=== PATIENT | female | born 1990 | race Caucasian/White ===

== ENCOUNTER → 2020-07-21 15:15 | Outpatient (BNVA) | payer MEDICAID, SELFPAY | PROVIDERS: Family Provider Nurse Practitioner Family; PCP Nurse Practitioner Family; Visit Provider Obstetrics & Gynecology | DX: Z12.4 Encounter for screening for malignant neoplasm of cervix (principal) | CPT/HCPCS: 88175 ==

== ENCOUNTER → 2020-08-21 12:09 | Outpatient (BNVA) | payer MEDICAID, SELFPAY | PROVIDERS: Family Provider Nurse Practitioner Family; PCP Nurse Practitioner Family; Visit Provider Obstetrics & Gynecology | DX: L73.2 Hidradenitis suppurativa (principal) | CPT/HCPCS: 80048 ==

== ENCOUNTER → 2020-11-13 10:25 | Outpatient (BNVA) | payer MEDICAID, SELFPAY | PROVIDERS: Family Provider Nurse Practitioner Family; PCP Nurse Practitioner Family; Visit Provider Obstetrics & Gynecology | DX: L73.2 Hidradenitis suppurativa (principal) | CPT/HCPCS: 80048 ==

== ENCOUNTER → 2021-02-23 16:15 | Outpatient (BNVA) | payer MEDICAID, SELFPAY | PROVIDERS: Family Provider Nurse Practitioner Family; PCP Nurse Practitioner Family; Visit Provider Surgery | DX: Z20.822 Contact with and (suspected) exposure to COVID-19 (principal) | CPT/HCPCS: 87635 ==

== ENCOUNTER 2021-02-28 09:00 | Day surgery (SDC) | payer OTHER, MEDICAID, SELFPAY ==
[2021-02-27 12:20] VITALS: BMI 49.6
[2021-02-28 09:16] VITALS: BP 168/92; PULSE 108; RESP 18; TEMP 36.5; O2SAT 100
[2021-02-28 09:26] LABS: OR HCG Qualitative Urine Negative (Negative)
[2021-02-28] MEDS: sodium chloride 0.9% 1,000 ML 30 ML IV (09:30)
--- NOTE | 2021-02-28 10:25 | ANES.PREANE2 ---
Pre-Anesthetic Assessment Pre-Anesthetic Assessment: Height/Weight: Height 1.6 m Weight 127.006 kg Temp Pulse Resp BP Pulse Ox 97.7 F 108 H 18 168/92 100 02/28/21 09:16 02/28/21 09:16 02/28/21 09:16 02/28/21 09:16 02/28/21 09:16 Preop Diagnosis: Acid reflux associated with morbid obesity Proposed Procedure: Operation Date: 02/28/21 10:30 Proposed Procedures p EGD 42653 K21.9(Not Applicable) - Jalen Olson MD Was Beta Chavez taken within 24 hours: N/A Was Clonidine taken within 24 hours: N/A Last intake: Intake Last Liquid Date 02/28/21 Last Liquid Time 06:00 Last Solid Date 02/27/21 Last Solid Time 20:00 Social: Social History: No alcohol and No tobacco Exam: Pre-Anes Outpt Exam: alert, oriented x 3, clear to auscultation bilaterally and regular rate & rhythm Airway: Submandibular: WNL Cervical ROM: WNL MP: 2 Additional comments: Missing/broken tooth upper arch Metabolic: Metabolic: Morbid obesity Comments: PCOS Anesthetic Plan: ASA status: 3 Anesthesia: MAC Risk of > 500 ml blood loss (7ml/kg in children): No PFSH Anesthesia PFSH: Medical History PCOS (polycystic ovarian syndrome) (~2005) Surgical History No significant past surgical history Family History Mother Hyperlipidemia Grandmother Hyperlipidemia Maternal Grandfather Heart disease Maternal Denies family history of Anesthesia complication Bleeding disorder Social History Smoking and tobacco status: never smoked Alcohol intake: current Alcohol intake frequency: holidays/special occasions only Current occupational status: employed Data Anesthesia Other Labs: Laboratory Results - last 48 hr 02/28/21 09:25 Urine HCG, Qual Negative Cardiac Studies: No Data to Display
--- NOTE | 2021-02-28 10:58 | W.PM.OPSUD ---
Surgery/Procedure H&P Update DATE OF PROCEDURE: February 28, 2021 DATE H&P PERFORMED: 02/08/21 H&P UPDATE INFORMATION: I have reviewed H&P completed within last 30 days, I have examined patient prior to procedure and No changes to prior documentation PREOP DIAGNOSIS: Acid reflux associated with morbid obesity PRIMARY INDICATION FOR PROCEDURE: The same PLANNED PROCEDURE: Operation Date: 02/28/21 10:30 Proposed Procedures p EGD 82974 K21.9(Not Applicable) - Jalen Olson MD
[2021-02-28 11:30] VITALS: BP 130/81; PULSE 90; RESP 18; TEMP 36.3; O2SAT 100
[2021-02-28 11:35] VITALS: BP 136/96; PULSE 90; RESP 20; O2SAT 96
[2021-02-28 11:40] VITALS: BP 168/60; PULSE 90; TEMP 36.3; O2SAT 96
[2021-02-28 11:48] VITALS: BP 123/95; PULSE 98; RESP 18; TEMP 36.3; O2SAT 100
--- NOTE | 2021-02-28 12:01 | ANE.PACU2 ---
Inpatient post-anesthesia follow up: Airway intact: Yes Vital signs: Temperature 97.3 F Pulse Rate 98 Respiratory Rate 18 Blood Pressure 123/95 Pulse Oximetry 100 Oxygen Delivery Me thod Room Air Oxygen Flow Rate Fraction of Inspir ed Oxygen Hydration adequate: Yes Nausea and vomiting: No Pain level: 1 Mental status: Baseline
[2021-02-28 12:06] VITALS: BP 137/87
== END 2021-02-28 12:10 | disposition home or self-care (01) ==
PROVIDERS: Anesthesiology; PCP Registered Nurse; Visit Provider Surgery
PROC: 0DJ08ZZ Inspection of Upper Intestinal Tract, Via Natural or Artificial Opening Endoscopic (ICD-10-PCS; CPT 43235; principal; 2021-02-28 10:30)
DX: K21.9 Gastro-esophageal reflux disease without esophagitis (principal); K29.70 Gastritis, unspecified, without bleeding; K29.80 Duodenitis without bleeding; E66.01 Morbid (severe) obesity due to excess calories; Z68.42 Body mass index [BMI] 45.0-49.9, adult; E28.2 Polycystic ovarian syndrome; M54.9 Dorsalgia, unspecified; F32.9 Major depressive disorder, single episode, unspecified; F41.9 Anxiety disorder, unspecified; Z79.84 Long term (current) use of oral hypoglycemic drugs; Z82.49 Family history of ischemic heart disease and other diseases of the circulatory system
CPT/HCPCS: 43239; 81025; 84703; 88305; 96360; 96361; J2704; J7030

== ENCOUNTER 2021-05-11 13:59 | Outpatient (CLI) | payer OTHER, MEDICAID, SELFPAY ==
--- NOTE | 2021-05-11 14:06 | XR_ITS ---
WS: [id number] FOOT RIGHT TECHNIQUE: 3 views of the right foot CLINICAL INFORMATION: M79.671 - Pain in right foot COMPARISON: None. FINDINGS: Normal anatomic alignment. No acute fractures. Soft tissue edema. Normal metatarsals. Plantar calcane al spurring. Achilles enthesophyte. XR/XR foot RT min 3V* [id number] IMPRESSION: 1. Soft tissue edema midfoot and forefoot. No acute fractures. 2. Prominent plantar calcaneal spur measuring 10 mm. Achilles enthesophyte.
== END 2021-05-11 14:00 | disposition home or self-care (01) ==
PROVIDERS: PCP Registered Nurse; Visit Provider Family Medicine
DX: M79.671 Pain in right foot (principal); R60.0 Localized edema; M77.31 Calcaneal spur, right foot
CPT/HCPCS: 73630

== ENCOUNTER → 2021-05-14 10:27 | Outpatient (BNVA) | payer OTHER, MEDICAID, SELFPAY | PROVIDERS: PCP Registered Nurse; Visit Provider Family Medicine | DX: E66.9 Obesity, unspecified (principal); R68.89 Other general symptoms and signs; Z83.79 Family history of other diseases of the digestive system | CPT/HCPCS: 82784; 83516 ==

== ENCOUNTER → 2021-05-16 16:10 | Outpatient (BNVA) | payer OTHER, MEDICAID, SELFPAY | PROVIDERS: PCP Registered Nurse; Visit Provider Internal Medicine Rheumatology | DX: L73.2 Hidradenitis suppurativa (principal); Z79.899 Other long term (current) drug therapy | CPT/HCPCS: 36415; 80048 ==

== ENCOUNTER 2021-08-22 07:14 | Emergency (ER) | payer OTHER, SELFPAY ==
[2021-08-22 07:22] VITALS: BP 145/105; PULSE 87; RESP 18; TEMP 36.2; O2SAT 99; BMI 48.6
--- NOTE | 2021-08-22 07:26 | ED_ITS ---
HPI - General Adult General: Chief complaint: General Medical Stated complaint: NEEDLE STICK - YESTERDAY @ WORK Time Seen by Provider: 08/22/21 07:15 Source: patient Mode of arrival: ambulatory Limitations: no limitations History of Present Illness: HPI narrative: Patient is a 31-year-old female who presents to ED today for a workers comp injury consisting of a needlestick to h er left hand. 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 She states when she tried to catch the patient she accidentally stuck her left hand with the used needle. Patient's tetanus and hepatitis series are UTD. She states patient is returning today for repeat lab draw and has consented to having labs performed to test for hepatitis/HIV. No redness, swelling, discharge, pain to hand. Onset (ago): hour(s) Location: left (hand) and upper extremity Relieving factors: none Exacerbating factors: none Associated symptoms: Reports no associated symptoms; Deny malaise Treatments prior to arrival: none Review of Systems Const: Denies: fever(s), chills, body aches, fatigue or malaise Musc: Denies: extremity pain or extremity swelling Skin/Breast: Reports: other (needle puncture) Neuro: Denies: numbness in extremities, weakness in extremities or sensory changes [facility] PFSH: Medical History PCOS (polycystic ovarian syndrome) (~2005) Surgical History No significant past surgical history Family History Mother Hyperlipidemia Grandmother Hyperlipidemia Maternal Grandfather Heart disease Maternal Denies family history of Anesthesia complication Bleeding disorder Social History Smoking and tobacco status: never smoked Alcohol intake: current Alcohol intake frequency: holidays/special occasions only Current occupational status: employed Female Reproductive History: Date of last menstrual period: 07/25/21 Physical Exam Const: COMMON NORMALS: no acute distress, patient oriented x3, no limitations and alert GENERAL APPEARANCE: cooperative Extremity: COMMON NORMALS: full ROM NARRATIVE EXTREMITY EXAM: very small needle puncture charles to L palmar hand; no redness, swelling, streaking, or di scharge noted GENERAL: Yes normal exam except as noted Neuro: COMMON NORMALS: patient oriented x3, moves all extremities, no focal motor deficits and no sensory deficits noted SENSORIUM/ORIENTATION: Yes alert Skin: NARRATIVE SKIN EXAM: see extremity assessment for pertinent skin findings Course Vital Signs: Vital signs: Vital Signs Temperature 97.1 F L 08/22/21 07:22 Pulse Rate 87 08/22/21 07:22 Respiratory Rate 18 08/22/21 07:22 Blood Pressure 145/105 08/22/21 07:22 Pulse Oximetry 99 08/22/21 07:22 MDM - General Adult MDM Narrative: Medical decision making narrative: Patient declines PEP for HIV at this time as source patient is returning today for repeat lab draw and can be tested for hepatitis/HIV. [employer] supervisor aware and should contact patient with these results once they return. Patient will be instructed to follow up with Worker's Comp. Discharge Plan Discharge Patient Disposition: Home Clinical Impression: Needlestick injury accident Condition: Stable Prescriptions: No Action B-complex with vitamin C Tablet 1 tab PO DAILY RF: 0 fluticasone propionate [Allergy Relief (fluticasone)] 50 mcg/actuation sp ray,suspension 1 spray INTRANASAL DAILY PRN (Reason: Allergy Symptoms) RF: 0 azelastine 137 mcg (0.1 %) aerosol,spray 1 spray INTRANASAL DAILY PRN (Reason: Allergy Symptoms) RF: 0 albuterol sulfate 90 mcg/actuation aerosol powdr breath activated 2 inh INHALATION Q6H PRN (Reason: Shortness Of Breath) RF: 0 metformin 500 mg tablet extended release 24hr 1,500 mg PO DAILY 30 Days Qty: 90 RF: 12 desogestrel-ethinyl estradiol 0.15-0.03 mg tablet 1 tab PO DAILY Qty: 28 RF: 12 levocetirizine [Xyzal] 5 mg tablet 5 mg PO DAILY RF: 0 phentermine 37.5 mg capsule 37.5 mg PO DAILY RF: 0 Protonix 40 mg tablet,delayed release (DR/EC) 40 mg PO BID 30 Days Qty: 60 RF: 2 [id number]-[id number]-FA 1 mg Tablet 1 tab PO DAILY RF: 0 folic acid 1 mg Tablet 1 mg PO DAILY RF: 0 epinephrine 0.3 mg/0.3 mL auto-injector 0.3 mg IM PRN PRN (Reason: Anaphylaxis) RF: 0 spironolactone 50 mg tablet 200 mg PO DAILY RF: 0 Discharge Orders: Discharge ED (Routine); Ordered 08/22/21 Ordered By: Christy Marshall Referrals: Christina Bejarano [Primary Care Provider] - Activity Restrictions/Additional Instructions: As we discussed please follow-up with Worker's Compensation as instructed. [employer] supervisor should contact you with results of source patient once they return. You have elected not to start PEP for HIV at this time. Coding Level of Care Code ED [employer] Supervisor for Scottie Montez
[2021-08-22 07:55] VITALS: BP 144/99; PULSE 88; RESP 18; TEMP 36.6; O2SAT 96
[2021-08-22 08:32] LABS: HIV 1 & 2 Antibody Non-Reactive (Non-Reactiv); HIV 1 & 2 Antigen Non-Reactive (Non-Reactiv)
[2021-08-22 08:45] LABS: Hepatitis B Surface AB 6.6 (11.5-1000); Hepatitis B Surface Antigen Non-Reactive (Nonreactive); Hepatitis C Virus Antibody Non-Reactive (Nonreactive)
== END 2021-08-22 07:57 | disposition home or self-care (01) ==
PROVIDERS: Emergency Provider Physician Assistant; PCP Registered Nurse
DX: S61.432A Puncture wound without foreign body of left hand, initial encounter (principal); W46.1XXA Contact with contaminated hypodermic needle, initial encounter; Y92.531 Health care provider office as the place of occurrence of the external cause; Y99.0 Civilian activity done for income or pay; Z79.84 Long term (current) use of oral hypoglycemic drugs
CPT/HCPCS: 86706; 86803; 87340; 87806; 99282

== ENCOUNTER → 2021-09-14 18:31 | Outpatient (BNVA) | payer OTHER, MEDICAID, SELFPAY | PROVIDERS: PCP Family Medicine; Visit Provider Registered Nurse Neonatal Intensive Care | DX: J02.9 Acute pharyngitis, unspecified (principal) | CPT/HCPCS: 87880 ==

== ENCOUNTER 2021-10-31 20:00 | Outpatient (CLI) | payer OTHER, MEDICAID, SELFPAY | END 2021-10-31 20:01 | disposition home or self-care (01) | LOC: SLEEP 11-01 07:13 | PROVIDERS: PCP Family Medicine; Visit Provider Surgery | DX: R06.83 Snoring (principal); G47.10 Hypersomnia, unspecified; R53.83 Other fatigue | CPT/HCPCS: 95810 ==

== ENCOUNTER → 2021-11-17 17:00 | Outpatient (BNVA) | payer OTHER, MEDICAID, SELFPAY | PROVIDERS: PCP Family Medicine; Visit Provider Nurse Practitioner | DX: J02.9 Acute pharyngitis, unspecified (principal) | CPT/HCPCS: 87880 ==

== ENCOUNTER → 2021-11-20 10:35 | Outpatient (BNVA) | payer OTHER, MEDICAID, SELFPAY | PROVIDERS: PCP Family Medicine; Visit Provider Internal Medicine Rheumatology | DX: E28.2 Polycystic ovarian syndrome (principal) | CPT/HCPCS: 80048; 84439; 84443; 86038 ==

== ENCOUNTER → 2021-11-26 08:28 | Outpatient (BNVA) | payer OTHER, MEDICAID, SELFPAY | PROVIDERS: PCP Family Medicine; Visit Provider Internal Medicine Rheumatology | DX: M25.50 Pain in unspecified joint (principal) | CPT/HCPCS: 80076; 82565; 84550; 85025; 85651; 86140; 86160; 86200; 86431 ==

== ENCOUNTER 2022-01-08 10:29 | Outpatient (CLI) | payer OTHER, MEDICAID, SELFPAY ==
--- NOTE | 2022-01-08 10:39 | XR_ITS ---
WS: [id number] Exam: XR knee RT 3V* [id number] Date/Time of Exam: 01/08/2022 10:40 AM Reason For Exam: M25.569 - Pain in unspecified knee No fracture or dislocation noted. Articular relationships are intact. No joint effusion. XR/XR knee RT 3V* [id number] Impression: Normal right knee Kellgren-Miguelangel Classification: 0
--- NOTE | 2022-01-08 10:39 | XR_ITS ---
WS: [id number] Exam: XR knee LT 3V* [id number] Date/Time of Exam: 01/08/2022 10:40 AM Reason For Exam: M25.569 - Pain in unspecified knee No fracture or dislocation noted. Articular relationships are intact. No joint effusion. XR/XR knee LT 3V* [id number] Impression: Normal knee Kellgren-Miguelangel Classification: 0
[2022-01-08 11:48] LABS: Basophils % 0.5 %; Eosinophils # 0.1 10^3/uL (0.0-0.8); Eosinophils % 1.2 %; Hematocrit 41.4 % (37.0-47.0); Hemoglobin 12.8 g/dL (11.5-15.3); Lymphocytes # 2.1 10^3/uL (0.8-4.8); Lymphocytes % 25.5 %; Mean Corpuscular HGB Conc 30.9 g/dL (30.0-36.0); Mean Corpuscular Hemoglobin 26.3 pg (28.0-34.0); Mean Corpuscular Volume 85.2 fl (81-99); Mean Platelet Volume 10.8 fL (7.4-10.4); Monocytes # 0.4 10^3/uL (0.2-0.9); Monocytes % 5.4 %; Neutrophils # 5.45 10^3/uL (1.8-7.7); Neutrophils % 67.2 %; Nucleated Red Blood Cells % 0 %; Platelet Count 323 10^3/cmm (130-400); Red Blood Count 4.86 10^6/uL (4.1-5.3); Red Cell Distribution Width 13.1 % (12.1-15.1); White Blood Count 8.1 10^3/uL (4.0-10.0)
[2022-01-08 12:01] LABS: Add Urine Culture? No; Bacteria Urine TRACE /hpf; Bilirubin Urine Neg (Negative); Blood Urine Neg (Negative); Glucose Urine UA Norm (Normal); Ketones Urine Negative (Negative); Leukocyte Esterase Urine Negative (Negative); Nitrate Urine Negative (Negative); Protein Urine Neg (Negative); Specific Gravity, Urine 1.005 (1.005-1.030); Urine Appearance Clear (CLEAR); Urine Color Straw (Yellow); Urobilinogen Urine Norm (Negative); pH Urine 7 (5-7)
[2022-01-08 12:11] LABS: Urine Creatinine 61 mg/dL (28-217); Urine Protein Random 5 mg/dL
[2022-01-08 12:23] LABS: Alanine Aminotransferase 15 U/L (0-33); Albumin Level 4.4 g/dL (3.5-5.2); Alkaline Phosphatase 91 IU/L (35-105); Aspartate Amino Transferase 16 U/L (0-32); C Reactive Protein 5.1 mg/L (0.0-4.9); Globulin 3.6 g/dL (1.3-4.6); Glomerular Filtration Rate 142.1 mL/min (90-130); Total Bilirubin 0.3 mg/dL (0.15-1.2)
[2022-01-09 10:59] LABS: CENTROMERE B ANTIBODY <1.0 NEG AI (<1.0 NEG); JO-1 ANTIBODY <1.0 NEG AI (<1.0 NEG); RNP ANTIBODY <1.0 NEG AI (<1.0 NEG); SCL-70 ANTIBODY 4.3 POS AI (<1.0 NEG); SJOGREN'S ANTIBODY (SS-A) <1.0 NEG AI (<1.0 NEG); SM ANTIBODY <1.0 NEG AI (<1.0 NEG); SS-B <1.0 NEG AI (<1.0 NEG)
[2022-01-09 12:18] LABS: COMPLEMENT COMPONENT C3C 186 mg/dL (83-193); COMPLEMENT COMPONENT C4C 45 mg/dL (15-57)
[2022-01-09 14:16] LABS: THYROID PEROXIDASE ANTIBODIES 4 IU/mL (<9); Thyroglobulin AB <1 IU/mL (< or = 1)
[2022-01-09 14:57] LABS: COMPLEMENT, TOTAL (CH50) >60 U/mL (31-60)
[2022-01-10 11:43] LABS: ANA PATTERN Nuclear, Homogeneous; ANA SCREEN, IFA POSITIVE (NEGATIVE)
[2022-01-12 15:53] LABS: DNA AB (DS) CRITHIDIA,IFA NEGATIVE (NEGATIVE)
--- NOTE | 2022-01-14 17:31 | XRR_ITS ---
PROCEDURE INFORMATION: Exam: XR Chest Exam date and time: 01/14/2022 5:31 PM Age: 31 years old Clinical indication: Condition or disease; Other: Lymphoids; Additional info: M34.9 - systemic sclerosis, unspecified TECHNIQUE: Imaging protocol: XR of the chest. Views: 2 views. COMPARISON: No relevant prior studies available. FINDINGS: Lungs: Unremarkable. No consolidation. Pleural spaces: Unremarkable. No pleural effusion. No pneumothorax. Heart/Mediastinum: Unremarkable. No cardiomegaly. Bones/joints: Unremarkable.
== END 2022-01-08 10:30 | disposition home or self-care (01) ==
PROVIDERS: PCP Family Medicine; Visit Provider Internal Medicine Rheumatology
DX: M19.90 Unspecified osteoarthritis, unspecified site (principal); M25.569 Pain in unspecified knee; R76.8 Other specified abnormal immunological findings in serum; Z79.899 Other long term (current) drug therapy
CPT/HCPCS: 36415; 73562; 80076; 81001; 82565; 82570; 84156; 85025; 86140; 86160; 86162; 86235; 86255; 86376; 86800

== ENCOUNTER 2022-01-14 08:23 | Outpatient (CLI) | payer OTHER, MEDICAID, SELFPAY ==
--- NOTE | 2022-01-14 | XRR_ITS ---
PROCEDURE INFORMATION: Exam: XR Chest Exam date and time: 01/14/2022 5:31 PM Age: 31 years old Clinical indication: Condition or disease; Other: Lymphoids; Additional info: M34.9 - systemic sclerosis, unspecified TECHNIQUE: Imaging protocol: XR of the chest. Views: 2 views. COMPARISON: No relevant prior studies available. FINDINGS: Lungs: Unremarkable. No consolidation. Pleural spaces: Unremarkable. No pleural effusion. No pneumothorax. Heart/Mediastinum: Unremarkable. No cardiomegaly. Bones/joints: Unremarkable. Dictated By: Steffen Workman MD Signed By: Signed Date/Time: DD/ 1731 MTDD
== END 2022-01-14 08:24 | disposition home or self-care (01) ==
LOC: RAD 01-15 08:24
PROVIDERS: PCP Family Medicine; Visit Provider Internal Medicine Rheumatology
DX: M34.9 Systemic sclerosis, unspecified (principal)
CPT/HCPCS: 71046

== ENCOUNTER 2022-02-16 19:02 | Emergency (ER) | payer OTHER, MEDICAID, SELFPAY ==
[2022-02-16 19:10] VITALS: BP 154/72; PULSE 93; RESP 18; TEMP 36.6; O2SAT 100; BMI 49.4
--- NOTE | 2022-02-16 19:19 | W.ED.EXTPRO ---
HPI - Extremity Problem General: Chief complaint: Extremity Injury, Lower Stated complaint: RT Knee Injury Time Seen by Provider: 02/16/22 19:18 History of Present Illness: 31-year-old female comes in today with injury to the right anterior knee. Patient reports on she had slipped and fell landing on both knees. Patient has abrasions to both knees. Patient has significant large abrasion to the right knee that she believes is getting infected. Patient has more purulent drainage developing on the wound and some surrounding redness with streaking now. Patient is able to move the knee with minimal discomfort. Patient denies any fever. Patient is alert and oriented. MD Complaint: extremity pain Onset (ago): day(s) Location: right and knee Radiation: none Relieving factors: rest Exacerbating factors: range of motion Associated symptoms: Deny chest pain or fever(s) Review of Systems General: Reports: 10 or more systems reviewed and unremarkable except in HPI and below Const: Denies: fever(s) Card: Denies: chest pain Resp: Denies: dyspnea GI: Denies: nausea : Denies: difficulty voiding Musc: Reports: joint pain Skin/Breast: Reports: new lesions [facility] ED PFSH: Medical History Body mass index (BMI) of 45.0 to 49.9 in adult Family history of celiac disease Greater trochanteric pain syndrome of both lower extremities High risk medication use Inflammatory arthritis Morbid obesity No pertinent past medical history neghx: htn,dm,thyroid,dvt/pe PCP: Dr. Cabral PCOS (polycystic ovarian syndrome) (~2005) Positive VINAY (antinuclear antibody) Surgical History No significant past surgical history Family History Mother Hyperlipidemia Grandmother No problems noted. Grandfather Heart disease Maternal Other Hx of migraines Denies family history of Rheumatoid arthritis Colon cancer Ovarian cancer Diabetes Lupus Hypercholesteremia Breast cancer Uterine cancer Thyroid disease Stroke Social History Smoking and tobacco status: never smoked Alcohol intake: never History of recent travel: No Female Reproductive History: Date of last menstrual period: 07/25/21 Physical Exam Const: COMMON NORMALS: alert HENMT: COMMON NORMALS: atraumatic HEAD & SCALP: atraumatic Eye: GENERAL EYE: appearance normal, both eyes and all related structures Neck/C-Spine: COMMON NORMALS: full ROM Resp: COMMON NORMALS: normal respiratory effort Cardio: COMMON NORMALS: regular rate RATE: regular rate Back/Pelvis: COMMON NORMALS: thoracic and lumbar spine normal to inspection Extremity: RIGHT LOWER EXTREMITY: Yes knee joint (Abrasion anterior knee, minimal swelling, erythema surrounding wound) Right knee: Yes inspection, Yes palpation, Yes ROM and Yes neurovascular exam Neuro: SENSORIUM/ORIENTATION: Yes alert Psych: COMMON NORMALS: cooperative Skin: TRAUMA: abrasion (Right knee, surrounding redness and drainage) Course Vital Signs: Vital signs: Vital Signs Temperature 97.8 F 02/16/22 19:10 Pulse Rate 105 H 02/16/22 20:31 Respiratory Rate 18 02/16/22 20:31 Blood Pressure 137/99 02/16/22 20:31 Pulse Oximetry 99 02/16/22 20:31 MDM - Extremity (Nontraumatic) Medical Decision Making Patient comes in today with injury to the right knee. On exam patient has an abrasion to the anterior knee is approximately 4 cm x 3 cm ovoid. Patient does have some whitish exudate with some mild serous drainage. Patient does have some surrounding erythema with streaking noted on the lateral side about 8 cm. Patient is afebrile. Differential diagnosis includes abrasion right knee, infected abrasion, fracture. No obvious fracture was noted on x-ray. Reviewed exam with patient with recommendations for treatment with antibiotic. Patient reported understanding of care plan for wound infection. Discharge Plan Discharge Patient Disposition: Home Clinical Impression: Abrasion of knee, right, infected Qualifiers: Encounter type: initial encounter Qualified Code(s): S80.211A - Abrasion, right knee, initial encounter Condition: Stable Prescriptions: New cephalexin 500 mg capsule 500 mg PO TID 7 Days Qty: 21 0RF hydrocodone-acetaminophen 5-325 mg tablet 1 tab PO Q8H PRN (Reason: pain (scale score 7-10)) Qty: 6 0RF No Action spironolactone 100 mg tablet 200 mg PO DAILY Qty: 180 3RF omega-3 fatty acids 1,000 mg capsule 2,000 mg PO DAILY 0RF Vaniqa 13.9 % cream 1 applic topical BID Qty: 45 3RF Rx Instructions: space doses >= 8 hrs apart and at least 5 min after hair removal; avoid water for 4hr after any dose Ozempic 0.25 mg or 0.5 mg(2 mg/1.5 mL) pen injector 1 mg SUBCUT Q7D Qty: 10 4RF ascorbic acid (vitamin C) 250 mg tablet 250 mg PO DAILY 0RF desogestrel-ethinyl estradiol [Apri] 0.15-0.03 mg tablet 1 tab PO DAILY Qty: 84 4RF Rx Instructions: taking continuous-- skips placebos--- please allow for enough refills budesonide-formoterol [Symbicort] 160-4.5 mcg/actuation HFA aerosol inhaler 2 puff inhalation BID 0RF hydroxychloroquine 200 mg tablet 200 mg PO BID Qty: 60 3RF prednisone 10 mg tablet See Rx Instructions PO .COMPLEX PRN (Reason: joint pain) Qty: 30 1RF Rx Instructions: take 1 or 2 tab daily for 5-7 days prn joint pain flare PO PRN; bupropion HCl [Wellbutrin SR] 150 mg tablet sustained-release 12 hr 150 mg PO DAILY Qty: 30 2RF fluticasone propionate [Allergy Relief (fluticasone)] 50 mcg/actuation spray,suspension 1 spray INTRANASAL DAILY PRN (Reason: Allergy Symptoms) 0RF Rx Instructions: administer into each nostril azelastine 137 mcg (0.1 %) aerosol,spray 1 spray INTRANASAL DAILY PRN (Reason: Allergy Symptoms) 0RF Rx Instructions: administer into each nostril albuterol sulfate 90 mcg/actuation aerosol powdr breath activated 2 inh INHALATION Q6H PRN (Reason: Shortness Of Breath) 0RF folate 1333 with folic acid 800 PO DAILY 0RF sulfurz PO DAILY 0RF Probiotic 3 billion cell capsule 3,000 mmu cells PO DAILY 0RF Rx Instructions: administer with a meal ferrous gluconate [Ferate] 240 mg (27 mg iron) tablet 240 mg PO DAILY 0RF esomeprazole magnesium 40 mg capsule,delayed release(DR/EC) 40 mg PO DAILY Qty: 30 0RF [id number]-[id number] 1 mg Tablet 1 tab PO DAILY 0RF folic acid 1 mg Tablet 1 mg PO DAILY 0RF epinephrine 0.3 mg/0.3 mL auto-injector 0.3 mg IM PRN PRN (Reason: Anaphylaxis) 0RF Discharge Orders: Discharge ED (Routine); Ordered 02/16/22 Ordered By: Roel Whyte Referrals: Augustin Mcnamara DO [Primary Care Provider] - Discharge Diet: Usual diet Discharge Activity: Increase activity as tolerated Patient Instructions: Abrasion (ED), Opioid Safety Activity Restrictions/Additional Instructions: Take antibiotic cephalexin, 500 mg, 3 times a day for the next 7 days. Continue wound care as directed. Drink plenty of water with medication. Use acetaminophen and ibuprofen to control pain. Use hydrocodone for breakthrough pain. Follow-up with primary care in 3 days for recheck. Return to ER for worsening symptoms or new concerns. Use crutches for ambulation as needed. Coding Level of Care Code ED 911 Dispatcher for Scottie Fwd Exam Comprehensive
--- NOTE | 2022-02-16 19:23 | XRR_ITS ---
PROCEDURE INFORMATION: Exam: XR Right Knee Exam date and time: 02/16/2022 7:52 PM Age: 31 years old Clinical indication: Injury or trauma; Fall; Blunt trauma; Knee; Right; Additional info: Fall injury TECHNIQUE: Imaging protocol: XR Right knee. Views: 3 views. COMPARISON: No relevant prior studies available. FINDINGS: Bones/joints: No fracture or other acute osseous abnormality. No joint narrowing, dislocation, or effusion noted. Small calcified enthesophyte in the proximal patellar tendon. Soft tissues: The soft tissues appear unremarkable. XR/XR knee RT 3V* [id number] IMPRESSION: No acute fracture or joint effusion demonstrated.
[2022-02-16 19:38] VITALS: BP 137/93; PULSE 106; RESP 16; O2SAT 99
[2022-02-16] MEDS: cephALEXin 500 mg Capsule PO (19:42)
[2022-02-16] MEDS: ketorolac 30 mg/mL INJ IM (20:15)
[2022-02-16 20:31] VITALS: BP 137/99; PULSE 105; RESP 18; O2SAT 99
== END 2022-02-16 20:33 | disposition home or self-care (01) ==
PROVIDERS: Emergency Provider Nurse Practitioner Family; PCP Family Medicine
DX: S80.211A Abrasion, right knee, initial encounter (principal); W19.XXXA Unspecified fall, initial encounter
CPT/HCPCS: 73562; 96372; 99283; J1885

== ENCOUNTER 2022-04-02 09:01 | Outpatient (CLI) | payer OTHER, MEDICAID, SELFPAY ==
--- NOTE | 2022-04-02 13:13 | PFTS_ITS ---
Date of Study:04/02/22 Date of Dictation: MECHANICS: Forced vital capacity (FVC) is normal. Forced expiratory volume in one second (FEV1) is normal. FEV1/FVC is normal. FLOW VOLUME LOOP: Normal. LUNG VOLUMES: Total lung capacity (TLC) is normal. Residual volume (RV) is . DIFFUSING CAPACITY FOR CARBON MONOXIDE: Normal. INTERPRETATION: The prebronchodilator spirometry is normal. No postbronchodilator spirometry was performed. Lung volumes are normal. Gas exchange (DLCO) is normal. MTDD
== END 2022-04-02 09:02 | disposition home or self-care (01) ==
LOC: RT 09:03
PROVIDERS: PCP Family Medicine; Visit Provider Internal Medicine Rheumatology
DX: M34.9 Systemic sclerosis, unspecified (principal)
CPT/HCPCS: 94010; 94726; 94729

== ENCOUNTER 2022-05-13 09:15 | Outpatient (CLI) | payer OTHER, MEDICAID, SELFPAY ==
[2022-05-13 09:42] LABS: Basophils % 0.3 %; Eosinophils # 0.2 10^3/uL (0.0-0.8); Eosinophils % 1.7 %; Hematocrit 36.7 % (37.0-47.0); Hemoglobin 12.3 g/dL (11.5-15.3); Lymphocytes # 2.1 10^3/uL (0.8-4.8); Lymphocytes % 20.2 %; Mean Corpuscular HGB Conc 33.5 g/dL (30.0-36.0); Mean Corpuscular Hemoglobin 27.5 pg (28.0-34.0); Mean Corpuscular Volume 81.9 fl (81-99); Mean Platelet Volume 10.7 fL (7.4-10.4); Monocytes # 0.4 10^3/uL (0.2-0.9); Monocytes % 4.3 %; Neutrophils # 7.52 10^3/uL (1.8-7.7); Neutrophils % 73.2 %; Nucleated Red Blood Cells % 0 %; Platelet Count 303 10^3/cmm (130-400); Red Blood Count 4.48 10^6/uL (4.1-5.3); Red Cell Distribution Width 12.8 % (12.1-15.1); White Blood Count 10.3 10^3/uL (4.0-10.0)
[2022-05-13 11:24] LABS: Alanine Aminotransferase 14 U/L (0-33); Albumin Level 4.1 g/dL (3.5-5.2); Alkaline Phosphatase 75 IU/L (35-105); Aspartate Amino Transferase 13 U/L (0-32); C Reactive Protein 11.2 mg/L (0.0-4.9); Globulin 3.4 g/dL (1.3-4.6); Glomerular Filtration Rate 96.4 mL/min (90-130); Total Bilirubin 0.2 mg/dL (0.15-1.2); Total Protein 7.5 g/dL (6.6-8.7)
== END 2022-05-13 09:16 | disposition home or self-care (01) ==
PROVIDERS: PCP Family Medicine; Visit Provider Internal Medicine Rheumatology
DX: M19.90 Unspecified osteoarthritis, unspecified site (principal); Z79.899 Other long term (current) drug therapy
CPT/HCPCS: 36415; 80076; 82565; 85025; 86140

== ENCOUNTER 2022-08-05 09:12 | Outpatient (CLI) | payer OTHER, MEDICAID, SELFPAY ==
[2022-08-05 09:54] LABS: Basophils % 0.3 %; Eosinophils # 0.2 10^3/uL (0.0-0.8); Eosinophils % 1.6 %; Hematocrit 37.3 % (37.0-47.0); Hemoglobin 11.7 g/dL (11.5-15.3); Lymphocytes # 2.1 10^3/uL (0.8-4.8); Mean Corpuscular HGB Conc 31.4 g/dL (30.0-36.0); Mean Corpuscular Hemoglobin 27.1 pg (28.0-34.0); Mean Corpuscular Volume 86.5 fl (81-99); Mean Platelet Volume 10.6 fL (7.4-10.4); Monocytes # 0.5 10^3/uL (0.2-0.9); Monocytes % 5.3 %; Neutrophils # 7.02 10^3/uL (1.8-7.7); Neutrophils % 71.3 %; Nucleated Red Blood Cells % 0 %; Platelet Count 340 10^3/cmm (130-400); Red Blood Count 4.31 10^6/uL (4.1-5.3); Red Cell Distribution Width 13.6 % (12.1-15.1); White Blood Count 9.9 10^3/uL (4.0-10.0)
[2022-08-05 10:29] LABS: Alanine Aminotransferase 13 U/L (0-33); Albumin Level 3.9 g/dL (3.5-5.2); Alkaline Phosphatase 94 U/L (35-105); Globulin 3.5 g/dL (1.3-4.6); Glomerular Filtration Rate 114.4 mL/min (90-130); Total Bilirubin 0.3 mg/dL (0.15-1.2); Total Protein 7.4 g/dL (6.6-8.7)
[2022-08-05 10:31] LABS: Aspartate Amino Transferase 18 U/L (0-32)
[2022-08-05 10:35] LABS: Alanine Aminotransferase 14 U/L (0-33); Albumin Level 4.2 g/dL (3.5-5.2); Alkaline Phosphatase 92 U/L (35-105); Blood Urea Nitrogen 8 mg/dL (6-20); Calcium 9.6 mg/dL (8.5-10.5); Carbon Dioxide 22 mmol/L (22-29); Chloride 102 mmol/L (98-107); Free T4 Free Thyroxine 1.07 ng/dL (0.82-1.77); Globulin 3.6 g/dL (1.3-4.6); Glomerular Filtration Rate 114.4 mL/min (90-130); Glucose 84 mg/dL (65-115); Osmolality Calculated 280 mOsm/kg (285-295); Sodium 136 mmol/L (136-145); Thyroid Stimulating Hormone 1.24 uIU/mL (0.27-4.20); Total Bilirubin 0.3 mg/dL (0.15-1.2); Total Protein 7.8 g/dL (6.6-8.7)
[2022-08-05 10:36] LABS: Anion Gap 16.7 (5-19); Aspartate Amino Transferase 18 U/L (0-32); Potassium 4.7 mmol/L (3.5-5.1)
== END 2022-08-05 09:13 | disposition home or self-care (01) ==
LOC: LAB 09:15
PROVIDERS: PCP Family Medicine; Visit Provider Internal Medicine Rheumatology
DX: M19.90 Unspecified osteoarthritis, unspecified site (principal); Z79.899 Other long term (current) drug therapy
CPT/HCPCS: 80053; 80076; 82565; 84439; 84443; 85025; 86140

== ENCOUNTER → 2022-08-16 09:18 | Outpatient (BNVA) | payer OTHER, MEDICAID, SELFPAY | PROVIDERS: PCP Family Medicine; Visit Provider Registered Nurse | DX: E66.01 Morbid (severe) obesity due to excess calories (principal); E88.81 Metabolic syndrome and other insulin resistance; L65.9 Nonscarring hair loss, unspecified; L68.0 Hirsutism; M19.90 Unspecified osteoarthritis, unspecified site; R53.83 Other fatigue; R73.03 Prediabetes; E53.8 Deficiency of other specified B group vitamins | CPT/HCPCS: 82157; 82306; 82533; 82607; 82627; 82746; 83735; 84270; 84403; 86337; 86341; 86769; 87426 ==

== ENCOUNTER → 2022-08-20 09:35 | Outpatient (BNVA) | payer OTHER, MEDICAID, SELFPAY | PROVIDERS: PCP Family Medicine; Visit Provider Internal Medicine | DX: E66.01 Morbid (severe) obesity due to excess calories (principal); E88.81 Metabolic syndrome and other insulin resistance; L65.9 Nonscarring hair loss, unspecified; L68.0 Hirsutism; M19.90 Unspecified osteoarthritis, unspecified site; R53.83 Other fatigue; R73.03 Prediabetes | CPT/HCPCS: 84630 ==

== ENCOUNTER → 2022-10-20 12:52 | Outpatient (BNVA) | payer OTHER, MEDICAID, SELFPAY | PROVIDERS: PCP Family Medicine; Visit Provider Family Medicine | DX: J11.1 Influenza due to unidentified influenza virus with other respiratory manifestations (principal); J06.9 Acute upper respiratory infection, unspecified | CPT/HCPCS: 87400 ==

== ENCOUNTER → 2022-12-24 11:35 | Outpatient (BNVA) | payer OTHER, SELFPAY | PROVIDERS: PCP Family Medicine; Visit Provider Dermatology | DX: Z13.6 Encounter for screening for cardiovascular disorders (principal) | CPT/HCPCS: 80061; 82947; 83036 ==

== ENCOUNTER → 2023-01-14 08:58 | Outpatient (BNVA) | payer OTHER, MEDICAID, SELFPAY | PROVIDERS: PCP Family Medicine; Visit Provider Internal Medicine Rheumatology | DX: M19.90 Unspecified osteoarthritis, unspecified site (principal); E88.81 Metabolic syndrome and other insulin resistance; R73.03 Prediabetes; Z79.899 Other long term (current) drug therapy | CPT/HCPCS: 80053; 80061; 82248; 83036; 85025; 86140 ==

== ENCOUNTER → 2023-01-20 10:26 | Outpatient (BNVA) | payer OTHER, MEDICAID, SELFPAY | PROVIDERS: PCP Family Medicine; Visit Provider Nurse Practitioner Women's Health | DX: Z01.419 Encounter for gynecological examination (general) (routine) without abnormal findings (principal); L68.0 Hirsutism | CPT/HCPCS: 87624 ==

== ENCOUNTER → 2023-03-10 11:55 | Outpatient (BNVA) | payer OTHER, MEDICAID, SELFPAY | PROVIDERS: PCP Nurse Practitioner Family; Visit Provider Internal Medicine | DX: E28.2 Polycystic ovarian syndrome (principal) | CPT/HCPCS: 82530; 82570 ==

== ENCOUNTER 2023-04-21 09:33 | Outpatient (CLI) | payer OTHER, MEDICAID, SELFPAY ==
--- NOTE | 2023-04-21 09:46 | XRR_ITS ---
PROCEDURE INFORMATION: Exam: XR Thoracic Spine Exam date and time: 04/21/2023 9:51 AM Age: 32 years old Clinical indication: Pain in thoracic spine; Additional info: M54.9 - dorsalgia, unspecified TECHNIQUE: Imaging protocol: Radiologic exam of the thoracic spine. Views: 3 views. COMPARISON: CR XR chest 2V* [id number] 01/14/2022 5:31 PM FINDINGS: Bones/joints: Mild multilevel disc space narrowing and productive degenerative endplate changes throughout the spine. Soft tissues: Unremarkable. XR/XR thoracic spine 3V* [id number] IMPRESSION: Mild multilevel disc space narrowing and productive degenerative endplate changes throughout the spine.
== END 2023-04-21 09:34 | disposition home or self-care (01) ==
LOC: RAD 09:38
PROVIDERS: PCP Nurse Practitioner Family; Visit Provider Nurse Practitioner Family
DX: M54.6 Pain in thoracic spine (principal); M47.814 Spondylosis without myelopathy or radiculopathy, thoracic region
CPT/HCPCS: 72072

== ENCOUNTER → 2023-05-02 11:10 | Outpatient (BNVA) | payer OTHER, MEDICAID, SELFPAY | PROVIDERS: PCP Nurse Practitioner Family; Visit Provider Internal Medicine Rheumatology | DX: M19.90 Unspecified osteoarthritis, unspecified site (principal); M25.50 Pain in unspecified joint; M54.9 Dorsalgia, unspecified | CPT/HCPCS: 80076; 82565; 82652; 85025; 86140 ==

== ENCOUNTER → 2023-05-06 10:20 | Outpatient (BNVA) | payer OTHER, MEDICAID, SELFPAY | PROVIDERS: PCP Nurse Practitioner Family; Visit Provider Internal Medicine Rheumatology | DX: Z79.899 Other long term (current) drug therapy (principal) | CPT/HCPCS: 71046 ==